=== PATIENT | female | born 1970 ===

== ENCOUNTER 2021-05-22 02:02 | Emergency (ER) | payer SELFPAY ==
--- NOTE | 2021-05-22 06:56 | XRay Report ---
XR chest routine 2V INDICATION / CLINICAL INFORMATION: Chest Pain. COMPARISON: None available. FINDINGS: SUPPORT DEVICES: None. HEART /PULMONARY VASCULATURE: No significant abnormality. LUNGS / PLEURA: No significant pulmonary or pleural abnormality. No pneumothorax. ADDITIONAL FINDINGS: No significant additional findings. IMPRESSION: 1. No acute findings. Signer Name: Darinel De La Rosa MD Signed: 05/22/2021 6:52 AM Workstation Name: [id number]
--- NOTE | 2021-05-22 07:39 | Event Note ---
ED Screening Note ED Screening Note: reexam by juliane MitrAssist on recheck co cp to back off meds x 3 years per her occ etoh/thc psh none pmh htn This initial assessment/diagnostic orders/clinical plan/treatment(s) is/are subject to change based on patients health status, clinical progression and re- assessment by fellow clinical providers in the ED. Further treatment and workup at subsequent clinical providers discretion. Patient/guardian urged not to elope from the ED as their condition may be serious if not clinically assessed and managed. Initial orders include: to [facility]-Al[facility] dumont
[2021-05-22 08:25] LABS: Basophils # (Auto) 0.1 K/mm3 (0.0-0.1); Basophils % (Auto) 0.8 % (0.0-1.8); Eosinophils # (Auto) 0.4 K/mm3 (0.0-0.4); Eosinophils % (Auto) 5.2 % (0.0-4.3); Hematocrit 40.7 % (30.3-42.9); Hemoglobin 13.6 gm/dl (10.1-14.3); Lymphocytes # (Auto) 1.8 K/mm3 (1.2-5.4); Lymphocytes % (Auto) 22.4 % (13.4-35.0); Mean Corpuscular HGB Conc 33 % (30-34); Mean Corpuscular Volume 96 fl (79-97); Monocytes # (Auto) 0.6 K/mm3 (0.0-0.8); Monocytes % (Auto) 7.2 % (0.0-7.3); Red Blood Count 4.26 M/mm3 (3.65-5.03); Red Cell Distribution Width 14.1 % (13.2-15.2)
[2021-05-22 08:30] LABS: Platelet Count 299 K/mm3 (140-440)
[2021-05-22 08:50] LABS: Alanine Aminotransferase 11 units/L (7-56); Albumin 4.7 g/dL (3.9-5); Blood Urea Nitrogen 9 mg/dL (7-17); Calcium 9.8 mg/dL (8.4-10.2); Hemolysis Index 13
[2021-05-22 08:52] LABS: BUN/Creatinine Ratio 15
[2021-05-22] MEDS ORDERED: hydrALAZINE 20 MG/1 ML INJ IV ONE (09:01)
--- NOTE | 2021-05-22 09:05 | Emergency Department Report ---
ED General Adult HPI - General Chief complaint: High BP Stated complaint: HIGH BLOOD PRESSURE Time Seen by Provider: 05/22/21 07:37 Source: patient Mode of arrival: Ambulatory Limitations: No Limitations - History of Present Illness Initial comments: Patient is 50 years old female with history of hypertension, noncompliant with her medication. Patient presented to the ER for evaluation of significantly elevated high blood pressure. Patient stated that she had a left knee injury 1 week ago at work and she went to an urgent care yesterday to see if she can get an x-ray however they found that her blood pressure is really high and asked her to go to the ER. Patient came to the ER this morning. Patient stated that she had some kind of chest pain last night but it went away. She denied any headache, weakness numbness or tingling sensation. Patient found to have a blood pressure of 225/156. Patient stated that she was taking lisinopril she was stopped approximately 3 years ago. She stated that she checked her blood pressure 1 month ago and it was high but is not crazy like this as she said. Severity scale (0 -10): 0 - Related Data Previous Rx's Medication Instructions Recorded Last Taken Type amLODIPine [Norvasc] 5 mg PO DAILY #30 tab 05/22/21 Unknown Rx hydroCHLOROthiazide [HCTZ] 25 mg PO QDAY #30 tablet 05/22/21 Unknown Rx Allergies Allergy/AdvReac Type Severity Reaction Status Date / Time shellfish derived Allergy Swelling Verified 05/22/21 05:30 egg AdvReac Vomiting Verified 05/22/21 05:30 lisinopril AdvReac Unknown Verified 05/22/21 05:35 ED Review of Systems ROS: Stated complaint: HIGH BLOOD PRESSURE Other details as noted in HPI Comment: All other systems reviewed and negative Constitutional: denies: chills, fever Respiratory: denies: cough, shortness of breath, SOB with exertion Cardiovascular: denies: chest pain, palpitations, dyspnea on exertion Gastrointestinal: denies: abdominal pain, nausea, vomiting Musculoskeletal: denies: back pain Neurological: denies: headache, weakness, numbness, paresthesias, confusion ED Past Medical Hx - Past Medical History Previous Medical History?: Yes Hx Hypertension: Yes - Surgical History Past Surgical History?: No - Medications Home Medications: Home Medications Medication Instructions Recorded Confirmed Last Taken Type amLODIPine [Norvasc] 5 mg PO DAILY #30 tab 05/22/21 Unknown Rx hydroCHLOROthiazide [HCTZ] 25 mg PO QDAY #30 tablet 05/22/21 Unknown Rx ED Physical Exam - General Limitations: No Limitations General appearance: alert, in no apparent distress - Head Head exam: Present: atraumatic, normocephalic, normal inspection - Eye Eye exam: Present: normal appearance, PERRL - ENT ENT exam: Present: normal exam, normal orophraynx, mucous membranes moist - Neck Neck exam: Present: normal inspection, full ROM. Absent: tenderness, meningismus - Respiratory Respiratory exam: Present: normal lung sounds bilaterally - Cardiovascular Cardiovascular Exam: Present: regular rate, normal rhythm, normal heart sounds - GI/Abdominal GI/Abdominal exam: Present: soft, normal bowel sounds. Absent: distended, tenderness, guarding, rebound, rigid, organomegaly, mass, bruit, pulsatile mass, hernia - Extremities Exam Extremities exam: Present: normal inspection, full ROM, normal capillary refill. Absent: tenderness - Back Exam Back exam: Present: normal inspection, full ROM. Absent: CVA tenderness (R), CVA tenderness (L) - Neurological Exam Neurological exam: Present: alert, oriented X3, CN II-XII intact, normal gait, reflexes normal. Absent: motor sensory deficit - Psychiatric Psychiatric exam: Present: normal mood - Skin Skin exam: Present: warm, intact, normal color ED Course Vital Signs 05/22/21 05/22/21 05/22/21 05:30 09:00 09:06 Temperature 98.4 F Pulse Rate 75 70 62 Respiratory 16 16 Rate Blood Pressure 223/118 Blood Pressure 225/156 223/118 [Right] O2 Sat by Pulse 100 100 Oximetry 05/22/21 05/22/21 09:16 10:44 Temperature Pulse Rate 80 Respiratory 17 Rate Blood Pressure 173/99 Blood Pressure [Right] O2 Sat by Pulse 100 Oximetry ED Medical Decision Making - Lab Data Result diagrams: 05/22/21 08:10 05/22/21 08:10 - Medical Decision Making Patient is 50 years old female with history of hypertension, noncompliant with her medication. Patient presented to the ER for evaluation of significantly elevated high blood pressure. Patient stated that she had a left knee injury 1 week ago at work and she went to an urgent care yesterday to see if she can get an x-ray however they found that her blood pressure is really high and asked her to go to the ER. Patient came to the ER this morning. Patient stated that she had some kind of chest pain last night but it went away. She denied any headache, weakness numbness or tingling sensation. Patient found to have a blood pressure of 225/156. Patient stated that she was taking lisinopril she was stopped approximately 3 years ago. She stated that she checked her blood pressure 1 month ago and it was high but is not crazy like this as she said. Patient received labetalol with little improvement in her blood pressure. Patient then received hydralazine with significant improvement in her blood pressure. Patient did receive clonidine 0.1mg. I started patient on Norvasc will give 1 dosage of 5 mg. Patient blood pressure significantly improved now and is currently 145/85. Patient stated that she is feeling much better. No dizziness observed. Patient denied any headache, chest pain, shortness of breath, weakness numbness or tingling sensation. Patient given prescription for Norvasc and hydrochlorothiazide. I gave patient Dr. Norwood to follow-up with. Advised patient to return to the ER if she develop any new symptoms. Critical care attestation.: If time is entered above; I have spent that time in minutes in the direct care of this critically ill patient, excluding procedure time. ED Disposition Clinical Impression: Malignant hypertension Disposition: 01 HOME / SELF CARE / HOMELESS Is pt being admited?: No Condition: Stable Instructions: Hypertension (ED), Managing Your Hypertension Prescriptions: amLODIPine [Norvasc] 5 mg PO DAILY #30 tab hydroCHLOROthiazide [HCTZ] 25 mg PO QDAY #30 tablet Referrals: INGRID SOBORNE MD [Staff Physician] - 3-5 Days
--- NOTE | 2021-05-22 10:11 | XRay Report ---
KNEE 3 VIEWS INDICATION: LEFT KNEE INJURY. COMPARISON: None. IMPRESSION: No acute osseous or soft tissue abnormality. No significant DJD. Signer Name: Jet Scott Jr, MD Signed: 05/22/2021 9:24 AM Workstation Name: [id number]
[2021-05-22] MEDS ORDERED: amLODIPine 5 MG TAB PO ONE (10:31)
[2021-05-22] MEDS ORDERED: cloNIDine 0.1 MG TAB PO ONE (10:31)
[2021-05-22 10:45] VITALS: BP 173/99
--- NOTE | 2021-05-22 11:48 | Electrocardiograph Report ---
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
[2021-05-22 12:40] LABS: Bilirubin,Urine NEG (Negative); Blood,Urine NEG (Negative); Color,Urine Colorless (Yellow); Protein,Urine <15 mg/dL mg/dL (Negative); RBC,Urine < 1.0 /HPF (0.0-6.0); Urobilinogen,Urine < 2.0 mg/dL (<2.0); WBC,Urine < 1.0 /HPF (0.0-6.0)
== END 2021-05-22 11:49 | disposition home or self-care (01) ==
LOC: ED 02:02
DX: I10 Essential (primary) hypertension (principal); Z91.013 Allergy to seafood; Z91.012 Allergy to eggs; Z88.8 Allergy status to other drugs, medicaments and biological substances; Z79.899 Other long term (current) drug therapy
CPT/HCPCS: 36415; 71046; 73562; 80053; 81001; 84484; 85025; 93005; 93010; 96374; 96375; 99284; J0360; J3490